=== PATIENT | female | born 1990 | race American Indian/Alaskan Native ===

== ENCOUNTER 2021-08-08 07:30 | Emergency (ER) | payer MEDICAID ==
[~2021-08-08] VITALS: Ht 154.9 cm; Wt 117.9 kg
[2021-08-08] MEDS ORDERED: KETOROLAC TROMETH 60MG/2ML VIAL IM ONE (08:00)
[2021-08-08 08:13] VITALS: BP 154/101
[2021-08-08] MEDS ORDERED: IBUP800T27 PO (08:24)
[2021-08-08] MEDS ORDERED: PRED20TA2 PO (08:24)
== END 2021-08-08 08:34 | disposition home or self-care (01) ==
LOC: ER 07:30
DX: S39.012A Strain of muscle, fascia and tendon of lower back, initial encounter (principal); M54.41 Lumbago with sciatica, right side; E66.01 Morbid (severe) obesity due to excess calories; Z68.42 Body mass index [BMI] 45.0-49.9, adult; Z90.49 Acquired absence of other specified parts of digestive tract; Z79.1 Long term (current) use of non-steroidal anti-inflammatories (NSAID); Z79.899 Other long term (current) drug therapy; Z88.0 Allergy status to penicillin; X50.1XXA Overexertion from prolonged static or awkward postures, initial encounter; Y93.89 Activity, other specified; Y92.89 Other specified places as the place of occurrence of the external cause; Y99.8 Other external cause status
CPT/HCPCS: 96372; 99283; J1885

== ENCOUNTER 2024-08-12 12:02 | Emergency (ER) | payer MEDICAID ==
[~2024-08-12] VITALS: Ht 154.9 cm; Wt 121.2 kg
[~2024-08-12 12:02] MED LIST: IBUP-1456 PO; PRED20TA2 PO
[2024-08-12 12:46] VITALS: BP 170/99; PULSE 104; RESP 16; TEMP 97.5; O2SAT 97
[2024-08-12 13:13] LABS: Basophils # (auto) 0 10 ^3/uL (0-0.2); Basophils % (auto) 0.3 % (0.0-2.0); Eosinophils # (auto) 0.1 10 ^3/uL (0-0.8); Hematocrit 39.9 % (36.0-46.0); Hemoglobin 13.3 g/dL (12.2-16.2); Lymphocytes # (auto) 3.4 10 ^3/uL (0.4-5.4); Lymphocytes % (auto) 27.4 % (10.0-50.0); Mean Corpuscular Hemoglobin 30.5 pg (28.0-32.0); Mean Corpuscular Hgb Conc. 33.4 g/dL (32.0-36.0); Mean Corpuscular Volume 91.4 fL (80.0-100.0); Monocytes # (auto) 0.8 10 ^3/uL (0-1.3); Monocytes % (auto) 6.6 % (0.0-12.0); Neutrophils % (auto) 64.7 % (37.0-80.0); Platelet Count (auto) 284 10^3/uL (140-450); Red Blood Cells 4.36 10^6/uL (4.0-5.20); Red Cell Distribution Width 13.6 % (11.8-14.3); White Blood Cell 12.4 10^3/uL (4.4-10.8)
[2024-08-12 13:14] LABS: Urine Bacteria FEW /hpf (None Seen); Urine Blood 2+ /uL (Negative); Urine Color Yellow (Yellow); Urine Mucus FEW (None Seen); Urine Protein, UAD 1+ (Negative); Urine Specific Gravity 1.031 (1.001-1.035); Urine Urobilinogen Normal (Negative); Urine WBC 41 /hpf (0 - 5); Urine pH 6.5 (5.0-9.0)
--- NOTE | 2024-08-12 13:14 | ED.PDOC ---
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 PATIENT REPORTS THAT SHE IS CURRENTLY 11 WEEKS AND BEGUN TO EXPERIENCE SOME SPOTTING SINCE TODAY WITH ASSOCIATED PELVIC PAIN. PATIENT RELAYS THAT HER LAST US WAS ON 08/09 IN THE ED. PATIENT DENIES FEVER, CHILLS, SHORTNESS OF BREATH, CHEST PAIN, ABDOMINAL PAIN, NAUSEA, VOMITING, HEADACHE, OR OTHER COMPLAINTS. NO OTHER SYMPTOMS OR MODIFYING FACTORS AT THIS TIME. Chief Complaint: Pelvic Pain Time Seen by MD: 13:09 Reviewed Notes: Nurses Notes, Medications, Allergies Allergies: Coded Allergies: Penicillins (Verified Allergy, Intermediate, 08/08/21) PT GETS GIVES FROM N Home Meds Active Scripts Nitrofurantoin Monohydrate Mac (Macrobid) 100 Mg Cap, 100 MG PO BID, #20 CAP Prov:SEHRON SUGGS 08/12/24 Prednisone (Prednisone) 20 Mg Tab, 40 MG PO DAILY for 10 Days, #20 MG Prov:SHERON SUGGS 08/08/21 Ibuprofen (Ibuprofen) 800 Mg Tab, 800 MG PO Q8HP PRN for 10 Days, #30 TAB Prov:SHERON SUGGS 08/08/21 Information Source: Patient Mode of Arrival: Ambulatory Timing: Days Prehospital treatment: None, Other Severity: Moderate Vaginal Discharge: None Vaginal Lesions: None Bleeding Quality: Bright Red Vaginal Mass: None Onset Of Mass/Bleeding: Spontaneous Sexual Activity: Last Consensual [place]: Unknown Control: None History of: Current Blood Type: Unknown Penetration Location: Vaginal Associated Signs and Symptoms: Vaginal Bleeding, Abdominal Pain, Cramping Past Medical History PAST MEDICAL HISTORY: Denies Surgical History: Cholecystectomy ASSISTANT TO THE VICE PRESIDENT History: Denies all ASSISTANT TO THE VICE PRESIDENT Hx Family History Family History: Reviewed,noncontributory to illness Social History Smoker: Non-Smoker Alcohol: Denies ETOH Use Drugs: Denies Drug Use Lives In: Home Constitutional: denies: chills, diaphoresis, fatigue, fever, malaise, sweats, weakness, others EENTM: denies: blurred vision, double vision, ear bleeding, ear discharge, ear drainage, ear pain, ear ringing, eye pain, eye redness, hearing loss, mouth pain, mouth swelling, nasal discharge, nose bleeding, nose congestion, nose pa in, photophobia, tearing, throat pain, throat swelling, voice changes, others Respiratory: denies: cough, hemoptysis, orthopnea, SOB at rest, shortness of breath, SOB with excertion, stridor, wheezing, others Cardiovascular: denies: chest pain, dizzy spells, diaphoresis, Dyspnea on exertion, edema, irregular heart beat, left arm pain, lightheadedness, palpitations, PND, syncope, others Gastrointestinal: reports: others (PELVIC PAIN); denies: abdomen distended, abdominal pain, blood streaked bowels, constipated, diarrhea, dysphagia, difficulty swallowing, hematemesis, melena, nausea, poor appetite, poor fluid intake, rectal bleeding, rectal pain, vomiting Genitourinary: reports: abnormal vagina bleeding (SPOTTING ), ; denies: burning, dyspareunia, dysuria, flank pain, frequency, hematuria, incontinence, pain, vagina discharge, urgency, others Neurological: denies: dizziness, fainting, headache, left sided numbness, left sided weakness, numbness, paresthesia, pre-existing deficit, right sided numbness, right sided weakness, seizure, speech problems, tingling, tremors, weakness, others Musculoskeletal: denies: back pain, gout, joint pain, joint swelling, muscle pain, muscle stiffness, neck pain, others Integumetry: denies: bruises, change in color, change in hair/nails, dryness, laceration, lesions, lumps, rash, wounds, others Allergic/Immunocompromised: denies: Difficulty Healing, Frequent Infections, Hives, Itching, others Hematologic/Lymphatic: denies: anemia, blood clots, easy bleeding, easy bruis ing, swollen glands, others Endocrine: denies: excessive hunger, excessive sweating, excessive thirst, exc essive urination, flushing, intolerance to cold, intolerance to heat, unexplained weight gain, unexplained weight loss, others Psychiatric: denies: anxiety, bipolar disorder, depression, hopeless, panic disorder, schizophrenia, sleepless, suicidal, others All Other Systems: Reviewed and Negative Physical Exam General Appearance: No Apparent Distress, Normal HEENT: Normal ENT Inspection, PERRL/EOMI, Pharynx Normal Neck: Full Range of Motion, Non-Tender, Normal, Normal Inspection Respiratory: Chest Non-Tender, Lungs Clear, No Accessory Muscle Use, No Respiratory Distress, Normal Breath Sounds Cardiovascular: No Edema, No JVD, No Murmur, No Gallop, Normal Peripheral Pulses, Regular Rate/Rhythm Breast Exam: Deferred Gastrointestinal: No Organomegaly, Non Tender, No Pulsatile Mass, Normal Bowel Sounds, Soft Genitalia: Deferred Pelvic: Normal External Exam, Tender Uterus, Vaginal Bleeding (VAGINAL SPOTTING, NO VAGINAL BLEEDING AND BLOOD CLOTS. 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 Was a procedure done?: No Differential Diagnosis (ASSISTANT TO THE VICE PRESIDENT) Vaginal Bleeding: - Inevitable, - Threatened, Ectopic Vaginal Discharge: UTI X-Ray, Labs, Meds, VS Vital Signs Date Time Temp Pulse Resp B/P (MAP) Pulse Ox O2 Delivery O2 Flow Rate FiO2 08/12/24 12:46 97.5 104 16 170/99 (122) 97 97.5 08/12/24 12:46 104 16 97 Room Air 08/12/24 12:04 97.5 104 16 170/99 (122) 97 Lab Test 08/12/24 12:53 08/12/24 12:30 Range/Units White Blood Count 12.4 H 4.4-10.8 10^3/uL Red Blood Count 4.36 4.0-5.20 10^6/uL Hemoglobin 13.3 12.2-16.2 g/dL Hematocrit 39.9 36.0-46.0 % Mean Corpuscular Volume 91.4 80.0-100.0 fL Mean Corpuscular Hemoglobin 30.5 28.0-32.0 pg Mean Corpuscular Hemoglobin Concent 33.4 32.0-36.0 g/dL Red Cell Distribution Width 13.6 11.8-14.3 % Platelet Count 284 140-450 10^3/uL Mean Platelet Volume 9.1 6.9-10.8 fL Neutrophils (%) (Auto) 64.7 37.0-80.0 % Lymphocytes (%) (Auto) 27.4 10.0-50.0 % Monocytes (%) (Auto) 6.6 0.0-12.0 % Eosinophils (%) (Auto) 1.0 0.0-7.0 % Basophils (%) (Auto) 0.3 0.0-2.0 % Neutrophils # (Auto) 8.0 1.6-8.6 10 ^3/uL Lymphocytes # (Auto) 3.4 0.4-5.4 10 ^3/uL Monocytes # (Auto) 0.8 0-1.3 10 ^3/uL Eosinophils # (Auto) 0.1 0-0.8 10 ^3/uL Basophils # (Auto) 0 0-0.2 10 ^3/uL Nucleated Red Blood Cells 0.0 % Beta HCG, Quantitative 33237.8 H 1.5-4.2 mIU/mL Urine Color Yellow Yellow Urine Clarity Cloudy H Clear Urine pH 6.5 5.0-9.0 Urine Specific [place] 1.031 1.001-1.035 Urine Protein 1+ H Negative Urine Ketones Negative Negative Urine Blood 2+ H Negative /uL Urine Nitrite Negative Negative Urine Bilirubin Negative Negative Urine Urobilinogen Normal Negative mg/dL Urine Leukocyte Esterase 3+ Negative /uL Urine RBC 46 0 - 4 /hpf Urine WBC 41 0 - 5 /hpf Urine Squamous Epithelial Cells Mod <5 /hpf Urine Bacteria Few H None Seen /hpf Urine Mucus Few None Seen Urine Glucose Normal Normal mg/dL PATIENT: BAY MCCLOUDIAACCT: [id number]: [id number] : 1990 LOC: ER ROOM / BED: / AGE / SEX: 34 / F ADM STATUS: DEP ER SERVICE 1300 ORDERING PHYSICIAN: SHERON SUGGS PROCEDURE(s): OB4US - OB ULTRASOUND COMP LESS 14WKS REASON: VAGINAL SPOTTING ORDER NUMBER(s): [id number], ACCESSION NUMBER(s): [id number] OB ULTRASOUND <14 WEEKS: HISTORY: VAGINAL SPOTTING TECHNIQUE: Multiple real-time grayscale sonographic images of the pelvis with duplex Doppler color flow, spectral and M-mode analysis. TRANSDUCERS: Transabdominal COMPARISON: None FINDINGS: The uterus measures 11.7 x 7.1 x 8.4 cm The cervix is not well visualized. Right ovary measures 4.6 x 5.0 x 4.7 cm with normal Doppler color flow. There is a cystic structure within the right ovary measuring up to 3.8 cm. Left ovary is not well visualized. No evidence of adnexal masses. IUP single fetus at 10 weeks and 0 days average ultrasound age based on mean crown-rump length of 3.4 cm and gestational sac size of 4.3 cm heart rate detected at 161 beats per minute. Yolk sac is not seen. Amniotic fluid is unremarkable. Brianna-gestational space: No evidence of perigestational hemorrhage. IMPRESSION: 1. IUP single live fetus with a heart rate of 161 beats per minute. AUA corresponding to an HERMINIO of 03/10/2025. 2. Cystic structure in the right ovary likely represents the corpus luteum. ATED BY: NADIR TORRES DO DICTATED DATE/TIME: 08/12/24 1449 SIGNED BY: NADIR TORRES DO SIGNED DATE/TIME: 08/12/24 1449 CC: X-Ray, Labs, Meds, VS Comment LABS ORDERED: CBC, BETA QUANT, PREG URINE, UA, OB ULTRASOUND REVIEWED AND INTERPRETED RESULTS: CBC, BETA QUANT, PREG URINE, UA, OB ULTRASOUND INDEPENDENT HISTORIANS: NONE DISCUSSED TREATMENT AND RESULTS WITH MEDICAL PERSONNEL. I HAVE DISCUSSED IMAGING AND LAB RESULTS WITH PATIENT AND HAVE INSTRUCTED THEM TO FOLLOW UP WITH THEIR PCP IN 1-2 DAYS. THE PATIENT FULLY UNDERSTANDS THEIR RESULTS AND ARE AWARE THEY NEED TO FOLLOW UP WITH THEIR PCP FOR FURTHER EVALUATION IF THEIR SYMPTOMS PERSIST. OB US: NORMAL IUP, 10 WEEKS 2 DAYS OF AGE, RIGHT OVARIAN CYST. PENDING RADIOLOGIST REPORT. Images Reviewed?: Images reviewed and evaluated by me Time of 1ST Reevaluation: 14:30 Reevaluation 1ST: Improved Patient Education/Counseling: Diagnosis, Treatment, Need For Follow Up Family Education/Counseling: Diagnosis, Treatment, Need For Follow Up Medical Screening: No EMC Exist At This Time Departure 1 Departure Time of Disposition: 14:30 Impression: Primary Impression: Vaginal bleeding in patient after first trimester Additional Impressions: UTI (urinary tract infection) Qualified Codes: N30.00 - Acute cystitis without hematuria Threatened Right ovarian cyst Disposition: HOME / SELF CARE / HOMELESS Condition: Stable Additional Instructions: FOLLOW-UP WITH PCP IN 1 TO 2 DAYS. TAKE MEDICATIONS PRESCRIBED. RETURN TO ED FOR ANY NEW OR WORSENING SYMPTOMS. e-Prescriptions Nitrofurantoin Monohydrate Mac (Macrobid) 100 Mg Cap 100 MG PO BID, #20 CAP Prov: SHERON SUGGS 08/12/24 Discharged With: Self, Relative Critical Care Note Critical Care Time?: No Stability Stability form required: No Heart Score Heart Score: Heart Score Response (Comments) Value History N/A 0 EKG N/A 0 Age N/A 0 Risk Factors N/A 0 Troponin N/A 0 Total 0 I personally scribed for SHERON SUGGS ([email or web address]) on 08/12/24 at 13:14. Electronically submitted by David Gonzalez ([email or web address]). I personally scribed for SHERON SUGGS ([email or web address]) on 08/12/24 at 14:04. Electronically submitted by David Gonzalez ([email or web address]). I personally scribed for SHERON SUGGS ([email or web address]) on 08/12/24 at 14:13. Electronically submitted by David Gonzalez ([email or web address]). I personally scribed for SHERON SUGGS ([email or web address]) on 08/12/24 at 14:15. Electronically submitted by David Gonzalez ([email or web address]). SHERON SUGGS Aug 12, 2024 13:14
[2024-08-12 13:16] LABS: Urine Clarity Cloudy (Clear)
[2024-08-12] MEDS ORDERED: NITR-87 PO (14:15)
--- NOTE | 2024-08-12 14:52 | DVH ---
OB ULTRASOUND <14 WEEKS: HISTORY: VAGINAL SPOTTING TECHNIQUE: Multiple real-time grayscale sonographic images of the pelvis with duplex Doppler color f low, spectral and M-mode analysis. TRANSDUCERS: Transabdominal COMPARISON: None FINDINGS: The uterus measures 11.7 x 7.1 x 8.4 cm The cervix is not well visualized. Right ovary measures 4.6 x 5.0 x 4.7 cm with normal Doppler color flow. There is a cystic structure w ithin the right ovary measuring up to 3.8 cm. Left ovary is not well visualized. No evidence of adnexal masses. IUP single fetus at 10 weeks and 0 days average ultrasound age based on mean crown-rump length of 3. 4 cm and gestational sac size of 4.3 cm heart rate detected at 161 beats per minute. Yolk sac is not seen. Amniotic fluid is unremarkable. Brianna-gestational space: No evidence of perigestational hemorrhage. IMPRESSION: 1. IUP single live fetus with a heart rate of 161 beats per minute. AUA corresponding to an HERMINIO of 03/10/2025. 2. Cystic structure in the right ovary likely represents the corpus luteum.
== END 2024-08-12 14:19 | disposition home or self-care (01) ==
LOC: ER 12:02
DX: O20.0 Threatened abortion (principal); N83.201 Unspecified ovarian cyst, right side; N39.0 Urinary tract infection, site not specified; Z88.0 Allergy status to penicillin; Z3A.11 11 weeks gestation of pregnancy; Z79.899 Other long term (current) drug therapy; Z90.49 Acquired absence of other specified parts of digestive tract
CPT/HCPCS: 36415; 76801; 81001; 84702; 85025

== ENCOUNTER 2024-08-28 16:09 | Emergency (ER) | payer MEDICAID ==
[~2024-08-28] VITALS: Ht 154.9 cm; Wt 123.9 kg
[~2024-08-28 16:09] MED LIST changes: +NITR-87 PO
[2024-08-28 18:10] LABS: Basophils # (auto) 0 10 ^3/uL (0-0.2); Basophils % (auto) 0.4 % (0.0-2.0); Eosinophils # (auto) 0.1 10 ^3/uL (0-0.8); Eosinophils % (auto) 0.7 % (0.0-7.0); Hematocrit 39.6 % (36.0-46.0); Hemoglobin 13.4 g/dL (12.2-16.2); Lymphocytes # (auto) 1.4 10 ^3/uL (0.4-5.4); Lymphocytes % (auto) 12.7 % (10.0-50.0); Mean Corpuscular Hgb Conc. 33.8 g/dL (32.0-36.0); Mean Corpuscular Volume 91.9 fL (80.0-100.0); Monocytes # (auto) 0.7 10 ^3/uL (0-1.3); Monocytes % (auto) 6.6 % (0.0-12.0); Neutrophils % (auto) 79.6 % (37.0-80.0); Nucleated Red Blood Cells % 0.1 %; Platelet Count (auto) 273 10^3/uL (140-450); Red Blood Cells 4.31 10^6/uL (4.0-5.20); Red Cell Distribution Width 13.6 % (11.8-14.3); White Blood Cell 11.3 10^3/uL (4.4-10.8)
[2024-08-28 18:16] LABS: Urine Bacteria FEW /hpf (None Seen); Urine Blood 1+ /uL (Negative); Urine Clarity Clear (Clear); Urine Color Light-Yellow (Yellow); Urine Protein, UAD Negative (Negative); Urine Specific Gravity 1.006 (1.001-1.035); Urine Squamous Epithelial Cell FEW /hpf (<5); Urine Urobilinogen Normal (Negative); Urine WBC 2 /hpf (0 - 5); Urine pH 6.5 (5.0-9.0)
[2024-08-28 18:27] LABS: Alanine Aminotransferase 10 U/L (7-40); Albumin 3.9 g/dL (3.2-4.8); Alkaline Phosphatase 73 U/L (46-116); Anion Gap 10 (5-15); BUN/Creatinine Ratio 10.8 (10.0-20.0); Calcium 9.8 mg/dL (8.7-10.4); Carbon Dioxide 24 mmol/L (20-31); Chloride 105 mmol/L (98-107); Glucose 98 mg/dL (74-106); INR 0.97 (0.9-1.15); Partial Thromboplastin Time 28.7 SEC (24.5-34.5); Prothrombin Time 10.3 sec (9.3-11.8); Sodium 139 mmol/L (136-145)
[2024-08-28 18:28] LABS: Aspartate Aminotransferase 12 U/L (13-40); Bilirubin, Total 0.3 mg/dL (0.2-1.0); Blood Urea Nitrogen 7 mg/dL (9-23); Total Protein 6.4 g/dL (5.7-8.2)
--- NOTE | 2024-08-28 18:50 | DVH ---
Procedure: US OB ULTRASOUND COMP LESS 14WKS Study Date and Requested Time: 08/28/2024 06:17 PM Study Description: US OB ULTRASOUND COMP LESS 14WKS History: abdominal pain Comparison: US OB ULTRASOUND COMP LESS 14WKS on DOS: 08/12/24 Technique: Multiple high resolution alexis-scale images obtained of the uterus, fetus, and other gestat ional components with M-mode scanning for evaluation of heart rate. Findings: Single live intrauterine with gestational sac, and fetus visualized. heart rate of 1 56 bpm. Estimated gestational age 13 weeks/ 1 day based on crown-rump length of 6.79 cm. The yolk sac is not visualized. Mean gestational sac diameter of 6.46 cm. Uterus measures 13.2 x 10.2 x 6.3 cm in size. Questionable myometrial contraction noted. Cervical os appears closed. Right ovary measures 5.8 x 3 x 4.5 cm with a 3.4 cm cyst and normal color Doppler flow. The left ovary is not visualized. No evidence of free fluid in the cul-de-sac. Impression: Single live intrauterine with heart rate of 156 bpm. Estimated gestational age 13 wee ks/ 1 day with estimated date of confinement 03/04/2025. Questionable myometrial contraction is noted. 3.4 cm right ovarian cyst. The left ovary is not visualized.
--- NOTE | 2024-08-28 18:59 | DVH ---
Bilateral lower extremity venous duplex Clinical History: r.o dvt Comparison: None Technique: Duplex Doppler evaluation of the deep venous systems of both lower extremities from the common femora l veins to the popliteal veins including color Doppler and spectral/pulsed waveform analysis was perf ormed. Findings: RIGHT SIDE: The common femoral vein demonstrates appropriate compressibility and waveform variability. There is compressibility/patency of the great saphenous vein at the proximal thigh. The femoral vein demonstrates appropriate compressibility and waveform variability. The deep femoral vein demonstrates appropriate compressibility and waveform variability. The popliteal vein demonstrates appropriate compressibility and waveform variability. There is normal compressibility at the tibioperoneal trunk. LEFT SIDE: The common femoral vein demonstrates appropriate compressibility and waveform variability. There is compressibility/patency of the great saphenous vein at the proximal thigh. The femoral vein demonstrates appropriate compressibility and waveform variability. The deep femoral vein demonstrates appropriate compressibility and waveform variability. The popliteal vein demonstrates appropriate compressibility and waveform variability. There is normal compressibility at the tibioperoneal trunk. Impression: 1. No right or left femoropopliteal venous thrombosis.
[2024-08-28 19:22] LABS: Lipase 25 U/L (12-53)
--- NOTE | 2024-08-28 19:22 | ED.PDOC ---
History of Present Illness Chief Complaint: Flank Pain Time Seen by MD: 17:07 Primary Care Provider: JAKI Allergies: Coded Allergies: Penicillins (Verified Allergy, Intermediate, 08/08/21) PT GETS GIVES FROM PCN Home Meds Active Scripts Nitrofurantoin Monohydrate Mac (Macrobid) 100 Mg Cap, 100 MG PO BID, #20 CAP Prov:CIPRIANO SIFUENTES MD 08/28/24 Prednisone (Prednisone) 20 Mg Tab, 40 MG PO DAILY for 10 Days, #20 MG Prov:SHERON SUGGS 08/08/21 Ibuprofen (Ibuprofen) 800 Mg Tab, 800 MG PO Q8HP PRN for 10 Days, #30 TAB Prov:SHERON SUGGS 08/08/21 Mode of Arrival: Ambulatory Past Medical History PAST MEDICAL HISTORY: Denies Surgical History: Cholecystectomy 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 AND 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 Hx Family History Family History: Reviewed,noncontributory to illness Social History Smoker: Non-Smoker Alcohol: Denies ETOH Use Drugs: Denies Drug Use Lives In: Home X-Ray, Labs, Meds, VS Vital Signs Date Time Temp Pulse Resp B/P (MAP) Pulse Ox O2 Delivery O2 Flow Rate FiO2 08/28/24 22:00 98.2 114 19 152/93 (112) 97 98.2 08/28/24 22:00 114 19 97 Room Air 08/28/24 16:59 98.5 107 16 152/59 (90) 98 Lab Test 08/28/24 21:32 08/28/24 17:56 08/28/24 16:56 Range/Units Influenza Type A Antigen Negative Negative Influenza Type B Antigen Negative Negative SARS-CoV-2 Antigen (Rapid) Negative NEGATIVE White Blood Count 11.3 H 4.4-10.8 10^3/uL Red Blood Count 4.31 4.0-5.20 10^6/uL Hemoglobin 13.4 12.2-16.2 g/dL Hematocrit 39.6 36.0-46.0 % Mean Corpuscular Volume 91.9 80.0-100.0 fL Mean Corpuscular Hemoglobin 31.0 28.0-32.0 pg Mean Corpuscular Hemoglobin Concent 33.8 32.0-36.0 g/dL Red Cell Distribution Width 13.6 11.8-14.3 % Platelet Count 273 140-450 10^3/uL Mean Platelet Volume 9.0 6.9-10.8 fL Neutrophils (%) (Auto) 79.6 37.0-80.0 % Lymphocytes (%) (Auto) 12.7 10.0-50.0 % Monocytes (%) (Auto) 6.6 0.0-12.0 % Eosinophils (%) (Auto) 0.7 0.0-7.0 % Basophils (%) (Auto) 0.4 0.0-2.0 % Neutrophils # (Auto) 9.0 H 1.6-8.6 10 ^3/uL Lymphocytes # (Auto) 1.4 0.4-5.4 10 ^3/uL Monocytes # (Auto) 0.7 0-1.3 10 ^3/uL Eosinophils # (Auto) 0.1 0-0.8 10 ^3/uL Basophils # (Auto) 0 0-0.2 10 ^3/uL Nucleated Red Blood Cells 0.1 % Prothrombin Time 10.3 9.3-11.8 sec Prothrombin Time INR 0.97 0.9-1.15 Activated Partial Thromboplast Time 28.7 24.5-34.5 SEC D-Dimer, Quantitative 0.45 0.0-0.49 mg/L FEU Sodium Level 139 136-145 mmol/L Potassium Level 4.0 3.5-5.1 mmol/L Chloride Level 105 98-107 mmol/L Carbon Dioxide Level 24 20-31 mmol/L Anion Gap 10 5-15 Blood Urea Nitrogen 7 L 9-23 mg/dL Creatinine 0.65 0.550-1.02 mg/dL Glomerular Filtration Rate Calc 117 >90 mL/min BUN/Creatinine Ratio 10.8 10.0-20.0 Serum Glucose 98 74-106 mg/dL Calcium Level 9.8 8.7-10.4 mg/dL Magnesium Level 2.0 1.6-2.6 mg/dL Total Bilirubin 0.3 0.2-1.0 mg/dL Aspartate Amino Transferase (AST) 12 L 13-40 U/L Alanine Aminotransferase (ALT) 10 7-40 U/L Alkaline Phosphatase 73 46-116 U/L Troponin I High Sensitivity < 3 L </=34 ng/L Total Protein 6.4 5.7-8.2 g/dL Albumin 3.9 3.2-4.8 g/dL Lipase 25 12-53 U/L Beta HCG, Quantitative 73979.4 H 1.5-4.2 mIU/mL Urine Color Light-yellow Yellow Urine Clarity Clear Clear Urine pH 6.5 5.0-9.0 Urine Specific [place] 1.006 1.001-1.035 Urine Protein Negative Negative Urine Ketones 1+ H Negative Urine Blood 1+ H Negative /uL Urine Nitrite Negative Negative Urine Bilirubin Negative Negative Urine Urobilinogen Normal Negative mg/dL Urine Leukocyte Esterase Negative Negative /uL Urine RBC 4 0 - 4 /hpf Urine WBC 2 0 - 5 /hpf Urine Squamous Epithelial Cells Few <5 /hpf Urine Bacteria Few H None Seen /hpf Urine Glucose Normal Normal mg/dL Current Medications Medications (Trade) Dose Ordered Sig/Niels Route Start Time Stop Time Status Last Admin Acetaminophen (Tylenol Tablet) 650 mg ONCE ONCE PO 08/28/24 17:45 08/28/24 17:46 DC 08/28/24 21:40 Sodium Chloride 1,000 ml @ 1,000 mls/hr Q1H ONCE IV 08/28/24 17:45 08/28/24 18:44 DC 08/28/24 21:58 Time of 1ST Reevaluation: 21:37 Reevaluation 1ST: Improved Departure 1 Departure Time of Disposition: 19:19 Impression: Primary Impression: UTI (urinary tract infection) Additional Impressions: Chest pain Shortness of breath Abdominal pain Back pain Disposition: 01 HOME / SELF CARE / HOMELESS Condition: Stable Additional Instructions: ED DISCHARGE INSTRUCTIONS Instructions: Please read all instructions provided in this packet carefully. Although you have been discharged from the Emergency Department, this does not mean that you have a "clean bill of health". []No definitive diagnosis for your symptoms has been made today. It is possible that you are in the process of developing a serious illness. This is why you must return to the ED without fail if any new or worsening symptoms (especially if your symptoms include chest pain, trouble breathing, abdominal pain, fever, headache, confusion, trouble seeing, or trouble walking) It is also very important that you see a primary care doctor within the next 3-5 days to follow up. If you are unable to get an appointment, return to the ED for re-evaluation. CHEST PAIN EDUCATION There are many things that can cause chest pain. Some are not serious and will get better on their own in a few days. But some kinds of chest pain need more testing and treatment. Your doctor may have recommended a follow-up visit in the next few days. If you are not getting better, you may need more tests or treatment. Even though your doctor has released you, you still need to watch for any problems. The doctor carefully checked you, but sometimes problems can develop later. If you have new symptoms or if your symptoms do not get better, get medical care right away. If you have worse or different chest pain or pressure that lasts more than 5 minutes or you passed out (lost consciousness), call 911 or seek other emergency help right away. A medical visit is only one step in your treatment. Even if you feel better, you still need to do what your doctor recommends, such as going to all suggested follow-up appointments and taking medicines exactly as directed. This will help you recover and help prevent future problems. How can you care for yourself at home? Rest until you feel better. Take your medicine exactly as prescribed. Call your doctor if you think you are having a problem with your medicine. Do not drive after taking a prescription pain medicine. When should you call for help? Call 911 if: You passed out (lost consciousness). You have severe difficulty breathing. You have symptoms of a heart attack. These may include: Chest pain or pressure, or a strange feeling in your chest. Sweating. Shortness of breath. Nausea or vomiting. Pain, pressure, or a strange feeling in your back, neck, jaw, or upper belly or in one or both shoulders or arms. Lightheadedness or sudden weakness. A fast or irregular heartbeat. After you call 911, the swaging machine operator may tell you to chew 1 adult-strength or 2 to 4 low-dose aspirin. Wait for an ambulance. Do not try to drive yourself. Call your doctor now or seek immediate medical care if: You have any trouble breathing. You have new or different chest pain. You are dizzy or lightheaded, or you feel like you may faint. Watch closely for changes in your health, and be sure to contact your doctor if you do not get better as expected. Current as of: April 14, 2024 Author: Department of Health and Human Services Staff? e-Prescriptions Nitrofurantoin Monohydrate Mac (Macrobid) 100 Mg Cap 100 MG PO BID, #20 CAP Prov: CIPRIANO SIFUENTES MD 08/28/24 Comments 34-year-old female 13 weeks gestational age with multiple complaints including low back pain, upper epigastric abdominal pain, chest pain, shortness of breath. Labs and images reviewed. Ultrasound negative for DVT bilaterally, D-dimer is negative. Patient is not hypoxic or tachypneic or in respiratory distress. Mild leukocytosis noted, possibly secondary to . Patient is afebrile. Bilateral lower extremity ultrasound negative for DVT. Presentation not suggestive of acute coronary syndrome, pulmonary embolism or aortic dissection. Patient improved at time of discharge. Patient able to ambulate without difficulty. Critical Care Note Critical Care Time?: No Stability Stability form required: No Heart Score Heart Score: Heart Score Response (Comments) Value History N/A 0 EKG N/A 0 Age N/A 0 Risk Factors N/A 0 Troponin N/A 0 Total 0 CIPRIANO SIFUENTES MD Aug 28, 2024 19:22
[2024-08-28] MEDS: ACETAMINOPHEN 325 MG TAB PO ONE (21:40)
[2024-08-28] MEDS: SODIUM CHLORIDE 0.9% 1,000 ML IV ONE (21:58)
[2024-08-28 22:00] VITALS: BP 152/93; PULSE 114; RESP 19; TEMP 98.2; O2SAT 97
[2024-08-28 22:08] LABS: Rapid Influenza A Negative (Negative); Rapid Influenza B Negative (Negative)
[2024-08-28 22:09] LABS: COVID19 ANTIGEN SOFIA FIA NEGATIVE (NEGATIVE)
[2024-08-28] MEDS ORDERED: NITR-87 PO (23:05)
--- NOTE | 2024-08-29 00:36 | ED.PDOC ---
History of Present Illness HPI Comments 34-year-old female G3, P2, 13 weeks gestational age presents to the emergency department with 2-3 days of right lower back pain. Fifty-three days of chest pain, shortness of breath, nausea. She reports she has an ongoing rash during . She denies associated lower extremity edema, diarrhea. She was diagnosed with a UTI 08/12/2020 4 hour she no longer has symptoms. She reports feeling somewhat lightheaded and dizzy. She denies any vaginal bleeding, pelvic cramping. No known injury. She states the pain from her right lower back radiates to her epigastric area. Chest pain is substernal, worse with inhalation. Chief Complaint: Flank Pain Time Seen by MD: 17:07 Primary Care Provider: JAKI Allergies: Coded Allergies: Penicillins (Verified Allergy, Intermediate, 08/08/21) PT GETS GIVES FROM [facility] Home Meds Active Scripts Nitrofurantoin Monohydrate Mac (Macrobid) 100 Mg Cap, 100 MG PO BID, #20 CAP Prov:CIPRIANO SIFUENTES MD 08/28/24 Prednisone (Prednisone) 20 Mg Tab, 40 MG PO DAILY for 10 Days, #20 MG Prov:SHERON SUGGS 08/08/21 Ibuprofen (Ibuprofen) 800 Mg Tab, 800 MG PO Q8HP PRN for 10 Days, #30 TAB Prov:SHERON SUGGS 08/08/21 Mode of Arrival: Ambulatory Review of Systems: As stated in HPI Vital Signs Vital Signs Date Time Temp Pulse Resp B/P (MAP) Pulse Ox O2 Delivery O2 Flow Rate FiO2 08/28/24 22:00 98.2 114 19 152/93 (112) 97 98.2 08/28/24 22:00 Room Air Physical Exam General: Awake, alert and oriented. No acute distress. Skin: Skin in warm, dry and intact. Appropriate color for ethnicity. Nailbeds pi nk with no cyanosis. HEENT: The head is normocephalic and atraumatic. Conjunctivae are clear without exudates or hemorrhage. Sclera is non-icteric. EOM are intact. No signs of nystagmus. Eyelids are normal in appearance without swelling or lesions. Oral m ucosa is pink and moist Neck: The neck is supple with normal range of motion. No JVD. Cardiac: Heart rate and rhythm are normal. No murmurs, gallops, or rubs are auscultated. Respiratory: No signs of respiratory distress. Lung sounds are clear in all lobes bilaterally without rales, ronchi, or wheezes. Abdominal: Abdomen is soft, , gravid non-tender without distention. Bowel sounds are present and normoactive in all four quadrants. Extremities: Upper and lower extremities are atraumatic in appearance without deformity or edema. Back: Tenderness to right lower back, paraspinal area. No CVA tenderness. Neurological: The patient is awake, alert and oriented to person, place, and time with normal speech. Speech is clear. There is no facial asymmetry. Psychiatric: Appropriate mood and affect. Good judgement and insight. No visual or auditory hallucinations. 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 Was a procedure done?: No Differential Dx Considerations may include: Differential diagnoses considered include urinary tract infection, back strain, bronchitis, asthma, viral syndrome, acute ischemic coronary syndrome, aortic dissection, cardiac tamponade, mediastinitis, pulmonary embolus, pneumothorax, tension pneumothorax, esophageal rupture, coronary artery vasospasm, myocarditis, pericarditis, pneumonia, pulmonary edema, esophageal tear, pancreatitis, aortic stenosis, dilated cardiomyopathy, hypertrophic cardiomyopathy, mitral valve prolapse, malignancy, pleuritis, pneumomediastinum, primary pulmonary hypertension, cholecystitis, esophageal spasm, esophagus, gastritis, GERD, peptic ulcer disease, costochondritis, fibromyalgia, rib fracture, herpes zoster, radicular syndromes, thoracic outlet syndrome, somatization. X-Ray, Labs, Meds, VS Vital Signs Date Time Temp Pulse Resp B/P (MAP) Pulse Ox O2 Delivery O2 Flow Rate FiO2 08/28/24 22:00 98.2 114 19 152/93 (112) 97 98.2 08/28/24 22:00 114 19 97 Room Air 08/28/24 16:59 98.5 107 16 152/59 (90) 98 Lab Test 08/28/24 21:32 08/28/24 17:56 08/28/24 16:56 Range/Units Influenza Type A Antigen Negative Negative Influenza Type B Antigen Negative Negative SARS-CoV-2 Antigen (Rapid) Negative NEGATIVE White Blood Count 11.3 H 4.4-10.8 10^3/uL Red Blood Count 4.31 4.0-5.20 10^6/uL Hemoglobin 13.4 12.2-16.2 g/dL Hematocrit 39.6 36.0-46.0 % Mean Corpuscular Volume 91.9 80.0-100.0 fL Mean Corpuscular Hemoglobin 31.0 28.0-32.0 pg Mean Corpuscular Hemoglobin Concent 33.8 32.0-36.0 g/dL Red Cell Distribution Width 13.6 11.8-14.3 % Platelet Count 273 140-450 10^3/uL Mean Platelet Volume 9.0 6.9-10.8 fL Neutrophils (%) (Auto) 79.6 37.0-80.0 % Lymphocytes (%) (Auto) 12.7 10.0-50.0 % Monocytes (%) (Auto) 6.6 0.0-12.0 % Eosinophils (%) (Auto) 0.7 0.0-7.0 % Basophils (%) (Auto) 0.4 0.0-2.0 % Neutrophils # (Auto) 9.0 H 1.6-8.6 10 ^3/uL Lymphocytes # (Auto) 1.4 0.4-5.4 10 ^3/uL Monocytes # (Auto) 0.7 0-1.3 10 ^3/uL Eosinophils # (Auto) 0.1 0-0.8 10 ^3/uL Basophils # (Auto) 0 0-0.2 10 ^3/uL Nucleated Red Blood Cells 0.1 % Prothrombin Time 10.3 9.3-11.8 sec Prothrombin Time INR 0.97 0.9-1.15 Activated Partial Thromboplast Time 28.7 24.5-34.5 SEC D-Dimer, Quantitative 0.45 0.0-0.49 mg/L FEU Sodium Level 139 136-145 mmol/L Potassium Level 4.0 3.5-5.1 mmol/L Chloride Level 105 98-107 mmol/L Carbon Dioxide Level 24 20-31 mmol/L Anion Gap 10 5-15 Blood Urea Nitrogen 7 L 9-23 mg/dL Creatinine 0.65 0.550-1.02 mg/dL Glomerular Filtration Rate Calc 117 >90 mL/min BUN/Creatinine Ratio 10.8 10.0-20.0 Serum Glucose 98 74-106 mg/dL Calcium Level 9.8 8.7-10.4 mg/dL Magnesium Level 2.0 1.6-2.6 mg/dL Total Bilirubin 0.3 0.2-1.0 mg/dL Aspartate Amino Transferase (AST) 12 L 13-40 U/L Alanine Aminotransferase (ALT) 10 7-40 U/L Alkaline Phosphatase 73 46-116 U/L Troponin I High Sensitivity < 3 L </=34 ng/L Total Protein 6.4 5.7-8.2 g/dL Albumin 3.9 3.2-4.8 g/dL Lipase 25 12-53 U/L Beta HCG, Quantitative 33033.4 H 1.5-4.2 mIU/mL Urine Color Light-yellow Yellow Urine Clarity Clear Clear Urine pH 6.5 5.0-9.0 Urine Specific Henefer 1.006 1.001-1.035 Urine Protein Negative Negative Urine Ketones 1+ H Negative Urine Blood 1+ H Negative /uL Urine Nitrite Negative Negative Urine Bilirubin Negative Negative Urine Urobilinogen Normal Negative mg/dL Urine Leukocyte Esterase Negative Negative /uL Urine RBC 4 0 - 4 /hpf Urine WBC 2 0 - 5 /hpf Urine Squamous Epithelial Cells Few <5 /hpf Urine Bacteria Few H None Seen /hpf Urine Glucose Normal Normal mg/dL Current Medications Medications (Trade) Dose Ordered Sig/Niels Route Start Time Stop Time Status Last Admin Acetaminophen (Tylenol Tablet) 650 mg ONCE ONCE PO 08/28/24 17:45 08/28/24 17:46 DC 08/28/24 21:40 Sodium Chloride 1,000 ml @ 1,000 mls/hr Q1H ONCE IV 08/28/24 17:45 08/28/24 18:44 DC 08/28/24 21:58 ORDERING PHYSICIAN: CIPRINAO SIFUENTES MD PROCEDURE(s): OB4US - OB ULTRASOUND COMP LESS 14WKS REASON: abdominal pain ORDER NUMBER(s): [id number], ACCESSION NUMBER(s): [id number] Procedure: US OB ULTRASOUND COMP LESS 14WKS Study Date and Requested Time: 08/28/2024 06:17 PM Study Description: US OB ULTRASOUND COMP LESS 14WKS History: abdominal pain Comparison: US OB ULTRASOUND COMP LESS 14WKS on DOS: 08/12/24 Technique: Multiple high resolution alexis-scale images obtained of the uterus, fetus, and other gestational components with M-mode scanning for evaluation of heart rate. Findings: Single live intrauterine with gestational sac, and fetus visualized. heart rate of 156 bpm. Estimated gestational age 13 weeks/ 1 day based on crown-rump length of 6.79 cm. The yolk sac is not visualized. Mean gestational sac diameter of 6.46 cm. Uterus measures 13.2 x 10.2 x 6.3 cm in size. Questionable myometrial contraction noted. Cervical os appears closed. Right ovary measures 5.8 x 3 x 4.5 cm with a 3.4 cm cyst and normal color Doppler flow. The left ovary is not visualized. No evidence of free fluid in the cul-de-sac. Impression: Single live intrauterine with heart rate of 156 bpm. Estimated gestational age 13 weeks/ 1 day with estimated date of confinement 03/04/2025. Questionable myometrial contraction is noted. 3.4 cm right ovarian cyst. The left ovary is not visualized. RING PHYSICIAN: CIPRIANO SIFUENTES MD PROCEDURE(s): BLDVT - BiLat Lower DVT REASON: r.o dvt ORDER NUMBER(s): [id number], ACCESSION NUMBER(s): [id number] Bilateral lower extremity venous duplex Clinical History: r.o dvt Comparison: None Technique: Duplex Doppler evaluation of the deep venous systems of both lower extremities from the common femoral veins to the popliteal veins including color Doppler and spectral/pulsed waveform analysis was performed. Findings: RIGHT SIDE: The common femoral vein demonstrates appropriate compressibility and waveform variability. There is compressibility/patency of the great saphenous vein at the proximal thigh. The femoral vein demonstrates appropriate compressibility and waveform variability. The deep femoral vein demonstrates appropriate compressibility and waveform variability. The popliteal vein demonstrates appropriate compressibility and waveform variability. There is normal compressibility at the tibioperoneal trunk. LEFT SIDE: The common femoral vein demonstrates appropriate compressibility and waveform variability. There is compressibility/patency of the great saphenous vein at the proximal thigh. The femoral vein demonstrates appropriate compressibility and waveform variability. The deep femoral vein demonstrates appropriate compressibility and waveform variability. The popliteal vein demonstrates appropriate compressibility and waveform variability. There is normal compressibility at the tibioperoneal trunk. Impression: 1. No right or left femoropopliteal venous thrombosis. Time of 1ST Reevaluation: 21:37 Reevaluation 1ST: Improved Patient Education/Counseling: Treatment, Need For Follow Up, Other Family Education/Counseling: No Family Present Departure 1 Departure Time of Disposition: 21:37 Impression: Primary Impression: UTI (urinary tract infection) Additional Impressions: Shortness of breath Back pain Abdominal pain Chest pain Disposition: HOME / SELF CARE / HOMELESS Condition: Stable Additional Instructions: ED DISCHARGE INSTRUCTIONS Instructions: Please read all instructions provided in this packet carefully. Although you have been discharged from the Emergency Department, this does not mean that you have a "clean bill of health". []No definitive diagnosis for your symptoms has been made today. It is possible that you are in the process of developing a serious illness. This is why you must return to the ED without fail if any new or worsening symptoms (especially if your symptoms include chest pain, trouble breathing, abdominal pain, fever, headache, confusion, trouble seeing, or trouble walking) It is also very important that you see a primary care doctor within the next 3-5 days to follow up. If you are unable to get an appointment, return to the ED for re-evaluation. CHEST PAIN EDUCATION There are many things that can cause chest pain. Some are not serious and will get better on their own in a few days. But some kinds of chest pain need more testing and treatment. Your doctor may have recommended a follow-up visit in the next few days. If you are not getting better, you may need more tests or treatment. Even though your doctor has released you, you still need to watch for any proble ms. The doctor carefully checked you, but sometimes problems can develop later. If you have new symptoms or if your symptoms do not get better, get medical care right away. If you have worse or different chest pain or pressure that lasts more than 5 minutes or you passed out (lost consciousness), call 911 or seek other emergency help right away. A medical visit is only one step in your treatment. Even if you feel better, you still need to do what your doctor recommends, such as going to all suggested follow-up appointments and taking medicines exactly as directed. This will help you recover and help prevent future problems. How can you care for yourself at home? Rest until you feel better. Take your medicine exactly as prescribed. Call your doctor if you think you are having a problem with your medicine. Do not drive after taking a prescription pain medicine. When should you call for help? Call 911 if: You passed out (lost consciousness). You have severe difficulty breathing. You have symptoms of a heart attack. These may include: Chest pain or pressure, or a strange feeling in your chest. Sweating. Shortness of breath. Nausea or vomiting. Pain, pressure, or a strange feeling in your back, neck, jaw, or upper belly or in one or both shoulders or arms. Lightheadedness or sudden weakness. A fast or irregular heartbeat. After you call 911, the pouch making machine operator may tell you to chew 1 adult-strength or 2 to 4 low-dose aspirin. Wait for an ambulance. Do not try to drive yourself. Call your doctor now or seek immediate medical care if: You have any trouble breathing. You have new or different chest pain. You are dizzy or lightheaded, or you feel like you may faint. Watch closely for changes in your health, and be sure to contact your doctor if you do not get better as expected. Current as of: April 14, 2024 Author: [facility] Staff? e-Prescriptions Nitrofurantoin Monohydrate Mac (Macrobid) 100 Mg Cap 100 MG PO BID, #20 CAP Prov: CIPRIANO SIFUENTES MD 08/28/24 Comments 34-year-old female 13 weeks gestational age with multiple complaints including low back pain, upper epigastric abdominal pain, chest pain, shortness of breath. Labs and images reviewed. Ultrasound negative for DVT bilaterally, D-dimer is negative. Patient is not hypoxic or tachypneic or in respiratory distress. Mild leukocytosis noted, possibly secondary to . Patient is afebrile. Bilateral lower extremity ultrasound negative for DVT. Presentation not suggestive of acute coronary syndrome, pulmonary embolism or aortic dissection. Patient improved at time of discharge. Patient able to ambulate without difficulty. Extensive evaluation was performed in attempt to identify or rule out: (See differential diagnosis section) The following tests were ordered, and results were reviewed by me: (See diagnostic results section) The following test were independently interpreted by me: N/A I reviewed and agreed with the following test results read by other providers: N/A I reviewed the following notes from the pt's past medical encounters: Visit this facility 08/04/2024 for vaginal bleeding during and UTI Additional information was gathered from interviewing the following independent historians: Rubber Gasket Inspector Trimmer at bedside Discussion of management or test interpretation with external physician/other qualified health medication care manager: N/A Addressed one or more chronic illnesses with severe exacerbation, progression, or side effects of treatment: and an acute or chronic illness that poses a threat to life or bodily function: Urinary tract infection, chest pain, dyspnea Decision regarding hospitalization or escalation of hospital level of care: Risks and benefits of admission for further treatment of patient's condition was considered however due to patient's stable condition patient will be discharged to follow up closely or return to care for worsening of condition or inability to follow up. CIPRIANO SIFUENTES MD Aug 29, 2024 00:36
== END 2024-08-28 23:20 | disposition home or self-care (01) ==
LOC: ER 16:09
DX: O23.41 Unspecified infection of urinary tract in pregnancy, first trimester (principal); O26.891 Other specified pregnancy related conditions, first trimester; M54.50 Low back pain, unspecified; R06.02 Shortness of breath; R10.9 Unspecified abdominal pain; R07.89 Other chest pain; Z3A.13 13 weeks gestation of pregnancy; Z90.49 Acquired absence of other specified parts of digestive tract; Z88.0 Allergy status to penicillin; Z79.52 Long term (current) use of systemic steroids; Z79.899 Other long term (current) drug therapy; Z20.822 Contact with and (suspected) exposure to COVID-19
CPT/HCPCS: 36415; 76801; 80053; 81001; 83690; 83735; 84484; 84702; 85025; 85379; 85610; 85730; 87086; 87426; 87804; 93970; 96360; 99284; J7030

== ENCOUNTER 2024-12-13 14:36 | Observation (INO) | payer MEDICAID ==
--- NOTE | 2024-12-13 15:37 | DVH ---
OB ULTRASOUND <14 WEEKS: HISTORY: decreased movement COMPARISON STUDIES: None TECHNIQUE: Multiple real-time grayscale sonographic images of the pelvis with duplex Doppler color f low, spectral and M-mode analysis. TRANSDUCERS: Transabdominal FINDINGS: presentation transverse head on maternal right. Placenta fundal heart rate 130 beats per minute MVP: 6.1 cm Prior measurement of KEMAL: Not applicable. IMPRESSION: 1. presentation transverse head on maternal right 2. Placenta fundal 3. FHR: 130 beats per minute 4. MVP: 6.1 cm 5. No prior studies for comparison
[2024-12-13] MEDS ORDERED: PREN1TAB71 OR (16:22)
--- NOTE | 2024-12-14 14:43 | DVHDS2 ---
Physician Discharge Progress N Final Diagnosis: dec movement 28wks Operations or Procedures: Operations or Procedures nst,sono Condition on Discharge: Good Disposition: Home Discharge Instructions: Diet: Regular Activity: No Restrictions, As Tolerated Medications: na Follow Up Care: Specialist: 2d Discharge Statement: "Patient was advised to return to the ER or call 911 if any headaches, dizziness, shortness of breath, chest pain, abdominal pain, bleeding, fevers, or worsening of medical condition. Patient was counseled about treatment plan, medications, possible side effects, patientverbalized understanding. All questions were answered to the best of my ability. This discharge took greater then 30 minutes in planning, reviewing documentati on, counseling the patient, and discussing with other team members." Visit Coding OBGYN Date of Service: Dec 13, 2024 Billing Provider: STEVE POLLACK DO EMPLOYEE TRAINING SPECIALIST Common Visit Codes: 43611-WOCJYGP INP/OBS CARE (HIGH) EMPLOYEE TRAINING SPECIALIST Procedure Codes: 24451-63- NON-STRESS TEST STEVE POLLACK DO Dec 14, 2024 14:43
== END 2024-12-13 16:46 | disposition home or self-care (01) ==
LOC: UNDOADMOB 14:36 → LDRP 14:36
PROVIDERS: ADMIT Obstetrics & Gynecology; ATTEND Obstetrics & Gynecology
DX: O36.8130 Decreased fetal movements, third trimester, not applicable or unspecified (principal); Z98.890 Other specified postprocedural states; Z79.899 Other long term (current) drug therapy; Z3A.28 28 weeks gestation of pregnancy
CPT/HCPCS: 76815; 81002; G0378

== ENCOUNTER 2024-12-20 13:35 | Observation (INO) | payer MEDICAID ==
[~2024-12-20 13:35] MED LIST changes: +PREN1TAB71 OR
[2024-12-20 16:21] LABS: Basophils # (auto) 0.1 10 ^3/uL (0-0.2); Eosinophils # (auto) 0.1 10 ^3/uL (0-0.8); Eosinophils % (auto) 1.1 % (0.0-7.0); Hematocrit 36.4 % (36.0-46.0); Hemoglobin 11.9 g/dL (12.2-16.2); Lymphocytes # (auto) 2.6 10 ^3/uL (0.4-5.4); Lymphocytes % (auto) 23.1 % (10.0-50.0); Mean Corpuscular Hemoglobin 29.9 pg (28.0-32.0); Mean Corpuscular Hgb Conc. 32.8 g/dL (32.0-36.0); Mean Corpuscular Volume 91.1 fL (80.0-100.0); Monocytes # (auto) 0.8 10 ^3/uL (0-1.3); Monocytes % (auto) 6.7 % (0.0-12.0); Neutrophils # (auto) 7.8 10 ^3/uL (1.6-8.6); Neutrophils % (auto) 68.1 % (37.0-80.0); Platelet Count (auto) 308 10^3/uL (140-450); Red Cell Distribution Width 14.2 % (11.8-14.3); White Blood Cell 11.4 10^3/uL (4.4-10.8)
[2024-12-20 16:36] LABS: Protein, Urine 46.9 mg/dL (1-14)
[2024-12-20 16:39] LABS: Creatinine, Urine 234.23 mg/dL (30.0-125.0); Urine Protein/Creatinine Ratio 0.2
[2024-12-20 16:41] LABS: Alanine Aminotransferase 10 U/L (7-40); Albumin 3.8 g/dL (3.2-4.8); Alkaline Phosphatase 86 U/L (46-116); Anion Gap 9 (5-15); BUN/Creatinine Ratio 14.5 (10.0-20.0); Blood Urea Nitrogen 9 mg/dL (9-23); Calcium 9.1 mg/dL (8.7-10.4); Carbon Dioxide 21 mmol/L (20-31); Chloride 107 mmol/L (98-107); Potassium 3.8 mmol/L (3.5-5.1); Sodium 137 mmol/L (136-145); Total Protein 6.6 g/dL (5.7-8.2); Uric Acid 4.6 mg/dL (3.1-7.8)
[2024-12-20 16:46] LABS: Aspartate Aminotransferase 8 U/L (13-40); Bilirubin, Total 0.2 mg/dL (0.2-1.0); Glucose 124 mg/dL (74-106)
[2024-12-20 16:58] LABS: INR 0.96 (0.9-1.15); Partial Thromboplastin Time 29.1 SEC (24.5-34.5); Prothrombin Time 10.2 sec (9.3-11.8)
[2024-12-20] MEDS ORDERED: LABE100T7 PO (17:16)
[2024-12-20 21:38] LABS: Urine Bacteria None Seen /hpf (None Seen)
[2024-12-20 22:16] LABS: Urine Amorphous Crystal MOD /hpf (None Seen); Urine Blood 1+ /uL (Negative); Urine Clarity Ex.Turbid (Clear); Urine Color Dark-Brown (Yellow); Urine Mucus FEW (None Seen); Urine Protein, UAD 1+ (Negative); Urine Specific Gravity 1.033 (1.001-1.035); Urine Squamous Epithelial Cell MOD /hpf (<5); Urine Urobilinogen Normal (Negative); Urine WBC < 1 /HPF (0-5)
--- NOTE | 2024-12-21 11:38 | DVHDS2 ---
Physician Discharge Progress N Final Diagnosis: pih ruled out,tachycardia,gdm 29wks Operations or Procedures: Operations or Procedures nst Condition on Discharge: Good Disposition: Home Discharge Instructions: Diet: Consistent carbohydrate Activity: No Restrictions, As Tolerated Medications: na Follow Up Care: Specialist: 1w Discharge Statement: "Patient was advised to return to the ER or call 911 if any headaches, dizziness, shortness of breath, chest pain, abdominal pain, bleeding, fevers, or worsening of medical condition. Patient was counseled about treatment plan, medications, possible side effects, patientverbalized understanding. All questions were answered to the best of my ability. This discharge took greater then 30 minutes in planning, reviewing documentation, counseling the patient, and discussing with other team members." Visit Coding OBGYN Date of Service: Dec 20, 2024 Billing Provider: STEVE POLLACK DO REPAIR TABLE OPERATOR Common Visit Codes: [id number] OBS CARE (HIGH), [id number] INP/OBS CARE (HIGH) REPAIR TABLE OPERATOR Procedure Codes: 63283-CYOWO @ TIME OF , 73507-39- NON- STRESS TEST STEVE POLLACK DO Dec 21, 2024 11:37
== END 2024-12-20 17:29 | disposition home or self-care (01) ==
LOC: UNDOADMOB 13:35 → LDRP 13:35 → UNDODISOB 17:29
PROVIDERS: ADMIT Obstetrics & Gynecology; ATTEND Obstetrics & Gynecology
DX: O24.419 Gestational diabetes mellitus in pregnancy, unspecified control (principal); O99.891 Other specified diseases and conditions complicating pregnancy; R00.0 Tachycardia, unspecified; Z98.890 Other specified postprocedural states; Z79.899 Other long term (current) drug therapy; Z3A.29 29 weeks gestation of pregnancy
CPT/HCPCS: 36415; 80053; 81001; 81002; 82570; 84156; 84550; 85025; 85610; 85730; 94760; G0378

== ENCOUNTER 2024-12-22 15:23 | Observation (INO) | payer MEDICAID ==
[~2024-12-22 15:23] MED LIST changes: +LABE100T7 PO
--- NOTE | 2024-12-22 19:37 | DVHDS2 ---
Physician Discharge Progress N Final Diagnosis: NST for rule out preeclampsia Operations or Procedures: Operations or Procedures 34yo IUP@29.3wks, +FM, denies UCs/LOF/VB/SONG/vision changes/RUQ pain. VSS except one elevated NST reactive PreE labs WNL on 12/20/24 [facility]/PTL/PreE precautions reviewed. Dr. Ellison consulted, agrees with POC. Condition on Discharge: Stable Disposition: Home Discharge Instructions: Diet: Regular Activity: No Restrictions, As Tolerated Medications: see med list Follow Up Care: Specialist: f/u on 12/28/24 for NST Discharge Statement: "Patient was advised to return to the ER or call 911 if any headaches, dizziness, shortness of breath, chest pain, abdominal pain, bleeding, fevers, or worsening of medical condition. Patient was counseled about treatment plan, medications, possible side effects, patientverbalized understanding. All questions were answered to the best of my ability. This discharge took greater then 30 minutes in planning, reviewing documentation, counseling the patient, and discussing with other team members." Visit Coding OBGYN Date of Service: Dec 22, 2024 Billing Provider: NIR CASTELLANOS CNM SPRINKLER FITTER APPRENTICE Common Visit Codes: [id number] OBS CARE (HIGH) SPRINKLER FITTER APPRENTICE Procedure Codes: 02683-70- NON-STRESS TEST NIR CASTELLANOS CNM Dec 22, 2024 19:37
== END 2024-12-22 17:13 | disposition home or self-care (01) ==
LOC: UNDOADMOB 15:23 → LDRP 15:23
PROVIDERS: ADMIT Obstetrics & Gynecology; ATTEND Obstetrics & Gynecology
DX: O13.3 Gestational [pregnancy-induced] hypertension without significant proteinuria, third trimester (principal); Z3A.29 29 weeks gestation of pregnancy; Z79.899 Other long term (current) drug therapy; Z88.0 Allergy status to penicillin
CPT/HCPCS: 59025; 81002; 94760; G0378

== ENCOUNTER 2024-12-30 06:53 | Observation (INO) | payer MEDICAID ==
--- NOTE | 2025-01-05 21:19 | DVHDS2 ---
Physician Discharge Progress N Final Diagnosis: testing NST for BP monitoring Operations or Procedures: Operations or Procedures 34yo IUP@30.3wks,+FM, denies UCs/LOF/VB/SONG/vision changes/RUQ pain VSS, normotensive NST reactive [facility]KC/PTL precautions reviewed Dr. Ellison consulted, agrees with POC Condition on Discharge: Stable Disposition: Home Discharge Instructions: Diet: Regular Activity: No Restrictions, As Tolerated Medications: see med list Follow Up Care: Specialist: f/u in 1 wk on 01/12/25 morning with 24 hour urine collection and repeat preE labs/NST Discharge Statement: "Patient was advised to return to the ER or call 911 if any headaches, dizziness, shortness of breath, chest pain, abdominal pain, bleeding, fevers, or worsening of medical condition. Patient was counseled about treatment plan, medications, possible side effects, patientverbalized understanding. All questions were answered to the best of my ability. This discharge took greater then 30 minutes in planning, reviewing documentation, counseling the patient, and discussing with other team members." Visit Coding OBGYN Date of Service: Jan 05, 2025 Billing Provider: NIR CASTELLANOS CNM SHINGLE BOLT CUTTER Common Visit Codes: [id number] OBS CARE (HIGH) SHINGLE BOLT CUTTER Procedure Codes: 85904-23- NON-STRESS TEST NIR CASTELLANOS CNM Jan 05, 2025 21:19
== END 2025-01-05 17:50 | disposition home or self-care (01) ==
LOC: LDRP 01-05 16:05 → UNDOADMOB 01-05 16:05 → LDRP 01-05 16:22 → UNDODISOB 01-05 17:50
PROVIDERS: ADMIT Obstetrics & Gynecology; ATTEND Obstetrics & Gynecology
DX: Z36.89 Encounter for other specified antenatal screening (principal); Z3A.31 31 weeks gestation of pregnancy; Z79.899 Other long term (current) drug therapy; Z88.0 Allergy status to penicillin
CPT/HCPCS: 81002; 94760; G0378